=== PATIENT | female | born 2000 | race African-American/Black ===

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

== ENCOUNTER 2022-12-05 08:53 | Emergency (ER) | payer OTHER ==
[2022-12-05] MEDS ORDERED: Acetaminophen 500 MG TAB ONE (09:54)
[2022-12-05 10:14] LABS: Pregnancy Test - Urine (BHCG) POSITIVE (Negative); Pregu Control Background? CLEAR/WHITE (CLR/WHITE); Pregu Control Bar Appear? YES (CONTROL BAR)
== END 2022-12-05 10:01 | disposition home or self-care (01) ==
LOC: ERS 08:53
DX: O98.519 Other viral diseases complicating pregnancy, unspecified trimester (principal); Z3A.00 Weeks of gestation of pregnancy not specified
CPT/HCPCS: 81025; 99283

== ENCOUNTER 2023-01-09 10:45 | Emergency (ER) | payer OTHER ==
[2023-01-09] MEDS ORDERED: Acetaminophen 500 MG TAB ONE (11:27)
[2023-01-09 11:53] LABS: #Eosinphils 0.2 thou/uL (0.0-0.7); #Lymphocytes 2.3 thou/uL (1.20-3.40); #Monocytes 0.9 thou/uL (0.11-0.59); #Neutrophils 4.8 thou/uL (1.40-6.50); %Basophils 0.3 % (0.0-1.0); %Eosinophils 2.2 % (0.0-10.0); %Lymphocytes 27.9 % (21.0-51.0); %Monocytes 10.5 % (0.0-10.0); %Neutrophils 59.1 % (42.0-75.0); Hemoglobin 14.2 g/dL (12.0-16.0); Mean Corpuscular HGB CONC 33.4 g/dL (32.0-36.0); Mean Corpuscular Volume 89.6 fl (78.0-98.0); Mean Platelet Volume 9.3 fL (7.4-10.4); Platelet Count 206 10x3/uL (130-400); RBC Distribution Width 14.9 % (11.5-14.5); Red Blood Cell (RBC) Count 4.75 mill/uL (4.20-5.40); White Blood Cell (WBC) Count 8.1 10x3/uL (4.8-10.8)
[2023-01-09 12:00] LABS: Bacteria/HPF None Seen HPF (None Seen); Bilirubin Negative (Negative); Blood, Urine 3+ (Negative); Clarity Turbid (Clear); Glucose, Urine (Dipstick) Normal (Negative); Ketone, Urine Negative (Negative); Leukocyte 250 Leu/uL (Negative); Nitrite Negative (Negative); Protein, Urine (Dipstick) 100 mg/dL (Neg-Trace); RBC/HPF Greater than 50 HPF (0-3); Specific Gravity, Urine 1.037 (1.002-1.036); Urobilinogen 3 mg/dL (Less than 2); WBC/HPF Greater than 50 HPF (0-3)
[2023-01-09 12:11] LABS: Albumin 4.1 g/dL (3.5-5.0)
[2023-01-09 12:12] LABS: Calcium 9.3 mg/dL (7.8-10.44); Chloride 108 mmol/L (98-107); Sodium 139 mmol/L (136-145)
[2023-01-09 12:13] LABS: Globulin 3.1 g/dL (2.4-3.5); Glucose 91 mg/dL (70-105); Protein, Total 7.2 g/dL (6.0-8.3)
[2023-01-09 12:15] LABS: Anion Gap 16 mmol/L (10-20); Bilirubin, Total 0.6 mg/dL (0.2-1.2); Carbon Dioxide 19 mmol/L (22-29)
[2023-01-09 12:16] LABS: Alkaline Phosphatase 69 U/L (40-110)
[2023-01-09 12:17] LABS: BUN (Urea Nitrogen) 9 mg/dL (7.0-18.7); Calc. Creatinine Clearance 0 mL/min (70-130); Estimated GFR 113
[2023-01-09 12:18] LABS: AST (SGOT) 18 U/L (5-34)
[2023-01-09 12:19] LABS: ALT (SGPT) 12 U/L (8-55)
== END 2023-01-09 14:00 | disposition home or self-care (01) ==
LOC: ERS 10:45
DX: O20.0 Threatened abortion (principal); N39.0 Urinary tract infection, site not specified; N93.9 Abnormal uterine and vaginal bleeding, unspecified; F17.210 Nicotine dependence, cigarettes, uncomplicated; Z3A.10 10 weeks gestation of pregnancy
CPT/HCPCS: 76801; 80053; 81003; 81015; 84702; 85025; 86900; 86901; 87086